=== PATIENT | male | born 1965 | race Caucasian/White ===

== ENCOUNTER 2020-02-22 14:23 | Inpatient (IN) | payer OTHER ==
[2020-02-22 15:33] VITALS: BMI 20.9
[2020-02-22] MEDS ORDERED: LACTATED RINGERS SOLUTION 1000 ML INFUS.BAG IV ONE ×2 (16:14)
[2020-02-22] MEDS ORDERED: HYDROmorphone HCl 2 MG/ML VIAL IVPUSH ONE (16:15)
[2020-02-22] MEDS ORDERED: PIPERACILLIN/TAZOB 4.5 GM 4.5 GM in DEXTROSE 5%-WATER 100 ML IVPB ONE (16:15)
[2020-02-22] MEDS ORDERED: VANCOMYCIN 1 GM in D5W (PRE-DOCKED) 1,000 MG/250 ML IVPB ONE (16:15)
[2020-02-22] MEDS ORDERED: NYSTATIN POWDER 100,000 UNITS/GM - 15 GM TOPICAL POWDER TP ONE (16:15)
[2020-02-22] MEDS ORDERED: ACETAMINOPHEN 1000 MG/100 ML VIAL (NON FORMULARY) IVPB ONE (16:20)
[2020-02-22] MEDS ORDERED: HYDROmorphone HCl 2 MG/ML VIAL ONE (16:49)
[2020-02-22 16:50] LABS: BASO % 0.6 % (0-2.0); EOS % 0.1 % (0-4.5); HEMATOCRIT 27.2 % (35.4-49); HEMOGLOBIN 8.7 GM/dL (11.7-16.9); LYMPH % 2.6 % (8-40); MCH 34.7 pg (25.7-33.7); MCHC 31.9 g/dl (32.0-35.9); MEAN CELL VOLUME 108.8 fl (80-96); MEAN PLT VOLUME 10.4 fl (7.5-11.1); MONO % 2.7 % (3.8-10.2); PLATELET COUNT 230 K/MM3 (134-434); RDW 17.7 % (11.9-15.9); WHITE BLOOD COUNT 12.3 K/mm3 (4.0-10.0)
[2020-02-22] MEDS ORDERED: ACETAMINOPHEN INJECTION 100 ML IVPB ONE (16:50)
[2020-02-22] MEDS ORDERED: PIPERACILLIN/TAZOB 4.5 GM 4.5 GM/100 ML BAG IVPB ONE (16:50)
[2020-02-22] MEDS ORDERED: VANCOMYCIN 1 GRAM (PRE-DOCKED) 1,000 MG/250 ML BAG IVPB ONE (16:50)
[2020-02-22] MEDS ORDERED: MAGNESIUM SULF 50% (8.12 MEQ/2 ML-1 GM VIAL) IVPB ONE (16:56)
[2020-02-22 17:06] LABS: BLOOD UREA NITROGEN 82.2 mg/dL (7-18); CALCIUM 9.7 mg/dL (8.5-10.1)
[2020-02-22 17:11] LABS: BILIRUBIN,TOTAL 0.5 mg/dL (0.2-1); TOT PROT 7.2 g/dl (6.4-8.2)
[2020-02-22 17:22] LABS: CREATININE 7.5 mg/dL (0.55-1.3); POTASSIUM 6.3 mmol/L (3.5-5.1)
[2020-02-22] MEDS ORDERED: LORazepam 2 MG TABLET PO ONE (17:33)
[2020-02-22 17:56] LABS: ANISOCYTOSIS 2+; MACROCYTOSIS 2+; PLATELET ESTIMATE ADEQUATE
[2020-02-22 18:37] LABS: INR 1.29 (0.83-1.09); PROTHROMBIN TIME (PATIENT) 15.5 SEC (9.7-13.0)
[2020-02-22 18:39] LABS: ACTIVATED PTT 37.4 SECONDS (25.2-36.5)
[2020-02-22] MEDS ORDERED: MAGNESIUM 1GM/D5W - 1 GM/100 ML IVPB IVPB ONE (18:43)
[2020-02-22] MEDS ORDERED: LORazepam 1 MG TABLET ONE (18:45)
[2020-02-22] MEDS ORDERED: ASPIRIN 81 MG CHEWABLE TABLETS PO ONE (20:40)
[2020-02-22 20:51] LABS: CALCIUM 8.9 mg/dL (8.5-10.1)
[2020-02-22 20:52] LABS: BLOOD UREA NITROGEN 80.7 mg/dL (7-18)
[2020-02-22 21:04] LABS: CREATININE 7.8 mg/dL (0.55-1.3); POTASSIUM 6.4 mmol/L (3.5-5.1)
[2020-02-22] MEDS ORDERED: ASPIRIN 81 MG CHEWABLE TABLETS ONE (21:52)
[2020-02-22 22:01] LABS: POTASSIUM 5.6 mmol/L (3.5-5.1)
[2020-02-22 22:02] LABS: CALCIUM 8.6 mg/dL (8.5-10.1)
[2020-02-22 22:03] LABS: BLOOD UREA NITROGEN 80.5 mg/dL (7-18)
[2020-02-22] MEDS ORDERED: INSULIN REGULAR HUMAN 100 UNITS/ML *VIAL IVPUSH ONE (22:18)
[2020-02-22 22:19] LABS: CREATININE 7.6 mg/dL (0.55-1.3)
[2020-02-22] MEDS ORDERED: DEXTROSE 50%-WATER - 25 GM/50 ML VIAL IVPUSH ONE (22:19)
[2020-02-22] MEDS ORDERED: CALCIUM GLUCONATE 10% - 1,000 MG/10 ML VIAL IVPUSH ONE (22:19)
[2020-02-22] MEDS ORDERED: CALCIUM GLUCONATE 10% - 1,000 MG/10 ML VIAL ONE (23:10)
[2020-02-22] MEDS ORDERED: DEXTROSE 50%-WATER 25 GM/50 ML DISP.SYRIN ONE (23:10)
[2020-02-22] MEDS ORDERED: HYDROmorphone HCL 2 MG TABLET PO ONE (23:19)
[2020-02-22] MEDS ORDERED: HYDROmorphone HCL 2 MG TABLET ONE (23:28)
[2020-02-22] MEDS ORDERED: SODIUM CHLORIDE 0.9% 1000 ML INFUS.BAG IV ONE (23:42)
[2020-02-23] MEDS ORDERED: SODIUM ZIRCONIUM CYCLOSILICATE (LOKELMA) 5 GM PACKET PO SCH ×2 (10:00→13:40)
[2020-02-23 13:02] LABS: BASO % 0.2 % (0-2.0); EOS % 0.3 % (0-4.5); HEMATOCRIT 28.2 % (35.4-49); LYMPH % 4.6 % (8-40); MCH 34.9 pg (25.7-33.7); MCHC 31.7 g/dl (32.0-35.9); MEAN PLT VOLUME 10.1 fl (7.5-11.1); MONO % 3.7 % (3.8-10.2); NEUT % 91.2 % (42.8-82.8); PLATELET COUNT 208 K/MM3 (134-434); RBC 2.57 M/mm3 (4.00-5.60); RDW 17.6 % (11.9-15.9); WHITE BLOOD COUNT 11.6 K/mm3 (4.0-10.0)
[2020-02-23 13:17] LABS: POTASSIUM 5.8 mmol/L (3.5-5.1)
[2020-02-23 13:20] LABS: ALBUMIN 1.8 g/dl (3.4-5.0); BLOOD UREA NITROGEN 89.4 mg/dL (7-18); CALCIUM 9.3 mg/dL (8.5-10.1)
[2020-02-23 13:25] LABS: BILIRUBIN,TOTAL 0.7 mg/dL (0.2-1); TOT PROT 6.5 g/dl (6.4-8.2)
[2020-02-23] MEDS ORDERED: SODIUM ZIRCONIUM CYCLOSILICATE (LOKELMA) 5 GM PACKET ONE (13:44)
[2020-02-23 14:26] LABS: ANISOCYTOSIS 2+; MACROCYTOSIS 2+
[2020-02-23] MEDS: HYDROmorphone HCL 2 MG TABLET PO PRN ×2 (14:27→22:30)
[2020-02-23] MEDS ORDERED: CEFAZOLIN 1 GM/D5W 1 GM/50 ML BAG ONE (15:07)
[2020-02-23] MEDS ORDERED: HEPARIN NA (PORCINE) 5,000 UNITS/ML 1ML VIAL ONE (15:07)
[2020-02-23] MEDS: HEPARIN NA (PORCINE) 5,000 UNITS/ML 1ML VIAL SQ SCH ×2 (15:57→22:37)
[2020-02-23] MEDS: CEFAZOLIN 1 GM in DEXTROSE 5%-WATER - 50 ML IVPB SCH (15:57)
[2020-02-23] MEDS: SEVELAMER CARBONATE 800 MG TAB (FP) PO SCH ×2 (17:34→17:54)
[2020-02-23] MEDS: VANCOMYCIN 250 MG/5 ML ORAL SOLUTION PO SCH (17:34)
[2020-02-23] MEDS ORDERED: METHADONE HCL 10 MG TABLET PO SCH (18:00)
[2020-02-23] MEDS: predniSONE 5 MG TABLET (UD) PO SCH (22:37)
[2020-02-23] MEDS: ATORVASTATIN CA 40 MG TABLET (FP) PO SCH (22:37)
[2020-02-23] MEDS ORDERED: SODIUM ZIRCONIUM CYCLOSILICATE (LOKELMA) 10 GM PACKET PO ONE (22:50)
[2020-02-24] MEDS: VANCOMYCIN 250 MG/5 ML ORAL SOLUTION PO SCH ×5 (00:23→23:31)
[2020-02-24] MEDS ORDERED: EPOETIN ALFA-EPBX 10,000 UNIT/ML VIAL SQ ONE (06:00)
[2020-02-24] MEDS ORDERED: metoPROLOL SUCCINATE 25 MG TAB.SR.24H (FP) PO ONE (06:00)
[2020-02-24] MEDS: HEPARIN NA (PORCINE) 5,000 UNITS/ML 1ML VIAL SQ SCH ×3 (06:55→22:03)
[2020-02-24] MEDS: fentaNYL 75mcg/hr PATCH.TD72 TD SCH (07:00)
[2020-02-24] MEDS: LEVOTHYROXINE NA 50 MCG TABLET (FP) PO SCH (07:19)
[2020-02-24] MEDS: FENTANYL PATCH WASTE MC PRN (07:19)
[2020-02-24] MEDS: HYDROmorphone HCL 2 MG TABLET PO PRN ×2 (08:17→16:38)
[2020-02-24] MEDS: SEVELAMER CARBONATE 800 MG TAB (FP) PO SCH ×3 (08:18→16:46)
[2020-02-24 08:21] LABS: BASO % 0.2 % (0-2.0); EOS % 0.1 % (0-4.5); HEMATOCRIT 24.8 % (35.4-49); HEMOGLOBIN 8.1 GM/dL (11.7-16.9); LYMPH % 3.7 % (8-40); MCH 35.6 pg (25.7-33.7); MCHC 32.7 g/dl (32.0-35.9); MEAN CELL VOLUME 108.8 fl (80-96); MEAN PLT VOLUME 10.3 fl (7.5-11.1); MONO % 3.8 % (3.8-10.2); NEUT % 92.2 % (42.8-82.8); PLATELET COUNT 195 K/MM3 (134-434); RBC 2.27 M/mm3 (4.00-5.60); WHITE BLOOD COUNT 10.4 K/mm3 (4.0-10.0)
[2020-02-24 08:50] LABS: POTASSIUM 5.7 mmol/L (3.5-5.1)
[2020-02-24 08:59] LABS: CALCIUM 8.8 mg/dL (8.5-10.1)
[2020-02-24 09:00] LABS: ALBUMIN 1.7 g/dl (3.4-5.0); BLOOD UREA NITROGEN 94.1 mg/dL (7-18); MAGNESIUM 2.1 mg/dL (1.8-2.4)
[2020-02-24 09:03] LABS: BILIRUBIN,TOTAL 0.4 mg/dL (0.2-1); TOT PROT 6.1 g/dl (6.4-8.2)
[2020-02-24] MEDS ORDERED: PT OWN MED DRAWER 7, Y5N ONE (10:08)
[2020-02-24 10:36] LABS: PHOSPHOROUS 9.3 mg/dL (2.5-4.9)
[2020-02-24] MEDS: metoPROLOL SUCCINATE 25 MG TAB.SR.24H (FP) PO SCH (11:29)
[2020-02-24] MEDS: ASPIRIN COATED 81 MG TABLET.EC PO SCH (11:29)
[2020-02-24] MEDS: SODIUM ZIRCONIUM CYCLOSILICATE (LOKELMA) 10 GM PACKET PO SCH (11:29)
[2020-02-24] MEDS: VITAMIN B COMP W-C 1 EA TABLET (NEPHRO-VITE) PO SCH (11:29)
[2020-02-24] MEDS: predniSONE 5 MG TABLET (UD) PO SCH ×2 (11:29→22:03)
[2020-02-24] MEDS: COLLAGENASE CLOSTRIDIUM HIST. 30 GRAMS TUBE TP SCH (11:30)
[2020-02-24 12:56] LABS: ANISOCYTOSIS 1+; MACROCYTOSIS 0; PLATELET ESTIMATE NORMAL
[2020-02-24] MEDS: LORazepam 0.5 MG TABLET PO PRN ×2 (13:12→23:31)
[2020-02-24] MEDS: METHADONE HCL 10 MG TABLET PO PRN (13:12)
[2020-02-24] MEDS ORDERED: DEXTROSE 5%-WATER - 50 ML IVPB ONE (14:21)
[2020-02-24] MEDS ORDERED: ceFAZolin SODIUM 1 GM VIAL ONE (14:21)
[2020-02-24] MEDS: CEFAZOLIN 1 GM in DEXTROSE 5%-WATER - 50 ML IVPB SCH (14:34)
[2020-02-24] MEDS ORDERED: HYDROmorphone HCl 2 MG/ML VIAL IVPB ONE (20:23)
[2020-02-24] MEDS: ATORVASTATIN CA 40 MG TABLET (FP) PO SCH (22:03)
[2020-02-25] MEDS: HYDROmorphone HCL 2 MG TABLET PO PRN ×3 (01:03→18:06)
[2020-02-25] MEDS: METHADONE HCL 10 MG TABLET PO PRN ×2 (01:03→13:26)
[2020-02-25] MEDS: LEVOTHYROXINE NA 50 MCG TABLET (FP) PO SCH (06:07)
[2020-02-25] MEDS: LORazepam 0.5 MG TABLET PO PRN ×3 (06:07→22:05)
[2020-02-25] MEDS: VANCOMYCIN 250 MG/5 ML ORAL SOLUTION PO SCH ×4 (06:07→23:05)
[2020-02-25] MEDS: HEPARIN NA (PORCINE) 5,000 UNITS/ML 1ML VIAL SQ SCH ×3 (06:07→22:06)
[2020-02-25] MEDS ORDERED: POVIDONE-IODINE 10% SOLN 118 ML BOTTLE TP ONE (07:31)
[2020-02-25] MEDS: SEVELAMER CARBONATE 800 MG TAB (FP) PO SCH ×3 (08:40→17:00)
[2020-02-25] MEDS ORDERED: PT OWN MED DRAWER 7, Y5N ONE (08:49)
[2020-02-25] MEDS: ASPIRIN COATED 81 MG TABLET.EC PO SCH (09:37)
[2020-02-25] MEDS: predniSONE 5 MG TABLET (UD) PO SCH ×2 (09:39→22:06)
[2020-02-25] MEDS: SODIUM ZIRCONIUM CYCLOSILICATE (LOKELMA) 10 GM PACKET PO SCH (09:39)
[2020-02-25] MEDS: SILVER SULFADIAZINE 1% TOP CREAM 50 GM JAR TP SCH (09:40)
[2020-02-25] MEDS: BACITRACIN 15 GM TUBE TOPICAL OINTMENT TP SCH (09:40)
[2020-02-25] MEDS: VITAMIN B COMP W-C 1 EA TABLET (NEPHRO-VITE) PO SCH (09:40)
[2020-02-25] MEDS: COLLAGENASE CLOSTRIDIUM HIST. 30 GRAMS TUBE TP SCH (09:41)
[2020-02-25] MEDS: metoPROLOL SUCCINATE 25 MG TAB.SR.24H (FP) PO SCH (09:41)
[2020-02-25] MEDS ORDERED: EPOETIN ALFA-EPBX 10,000 UNIT/ML VIAL IVPUSH ONE (11:30)
[2020-02-25] MEDS ORDERED: DEXTROSE 5%-WATER - 50 ML IVPB ONE (15:33)
[2020-02-25] MEDS ORDERED: ceFAZolin SODIUM 1 GM VIAL ONE (15:33)
[2020-02-25] MEDS: METHADONE HCL 10 MG TABLET PO SCH ×2 (15:34→22:05)
[2020-02-25] MEDS: CEFAZOLIN 1 GM in DEXTROSE 5%-WATER - 50 ML IVPB SCH (15:35)
[2020-02-25] MEDS ORDERED: diphenhydrAMINE HCL 25 MG CAPSULE (FP) PO ONE (22:03)
[2020-02-25] MEDS: ATORVASTATIN CA 40 MG TABLET (FP) PO SCH (22:06)
[2020-02-26] MEDS: HYDROmorphone HCL 2 MG TABLET PO PRN ×3 (04:40→22:31)
[2020-02-26] MEDS: HEPARIN NA (PORCINE) 5,000 UNITS/ML 1ML VIAL SQ SCH ×3 (06:49→22:32)
[2020-02-26] MEDS: METHADONE HCL 10 MG TABLET PO SCH ×3 (06:51→22:31)
[2020-02-26] MEDS: LEVOTHYROXINE NA 50 MCG TABLET (FP) PO SCH (06:52)
[2020-02-26] MEDS: VANCOMYCIN 250 MG/5 ML ORAL SOLUTION PO SCH ×3 (06:52→17:24)
[2020-02-26] MEDS ORDERED: PT OWN MED DRAWER 7, Y5N ONE ×2 (09:16→17:12)
[2020-02-26] MEDS: VITAMIN B COMP W-C 1 EA TABLET (NEPHRO-VITE) PO SCH (09:32)
[2020-02-26] MEDS: ASPIRIN COATED 81 MG TABLET.EC PO SCH (09:32)
[2020-02-26] MEDS: metoPROLOL SUCCINATE 25 MG TAB.SR.24H (FP) PO SCH (09:32)
[2020-02-26] MEDS: LORazepam 0.5 MG TABLET PO PRN (09:32)
[2020-02-26] MEDS: predniSONE 5 MG TABLET (UD) PO SCH ×2 (09:32→22:31)
[2020-02-26] MEDS: SEVELAMER CARBONATE 800 MG TAB (FP) PO SCH ×3 (09:32→17:24)
[2020-02-26] MEDS: SILVER SULFADIAZINE 1% TOP CREAM 50 GM JAR TP SCH (09:33)
[2020-02-26] MEDS: SODIUM ZIRCONIUM CYCLOSILICATE (LOKELMA) 10 GM PACKET PO SCH (09:33)
[2020-02-26] MEDS: BACITRACIN 15 GM TUBE TOPICAL OINTMENT TP SCH (09:33)
[2020-02-26] MEDS: COLLAGENASE CLOSTRIDIUM HIST. 30 GRAMS TUBE TP SCH (09:34)
[2020-02-26] MEDS ORDERED: SODIUM CHLORIDE 250 ML IV PRN (14:50)
[2020-02-26] MEDS ORDERED: ceFAZolin SODIUM 1 GM VIAL ONE ×2 (15:35→16:04)
[2020-02-26] MEDS ORDERED: DEXTROSE 5%-WATER - 50 ML IVPB ONE ×2 (15:36→16:04)
[2020-02-26] MEDS: CEFAZOLIN 1 GM in DEXTROSE 5%-WATER - 50 ML IVPB SCH (16:06)
[2020-02-26] MEDS: ATORVASTATIN CA 40 MG TABLET (FP) PO SCH (22:31)
[2020-02-27] MEDS: VANCOMYCIN 250 MG/5 ML ORAL SOLUTION PO SCH ×4 (00:50→17:59)
[2020-02-27] MEDS: LEVOTHYROXINE NA 50 MCG TABLET (FP) PO SCH (06:14)
[2020-02-27] MEDS: METHADONE HCL 10 MG TABLET PO SCH ×3 (06:14→22:14)
[2020-02-27] MEDS: HEPARIN NA (PORCINE) 5,000 UNITS/ML 1ML VIAL SQ SCH ×3 (06:14→22:15)
[2020-02-27] MEDS: fentaNYL 75mcg/hr PATCH.TD72 TD SCH (06:15)
[2020-02-27] MEDS: HYDROmorphone HCL 2 MG TABLET PO PRN ×3 (06:15→19:00)
[2020-02-27] MEDS: FENTANYL PATCH WASTE MC PRN (06:22)
[2020-02-27] MEDS: SEVELAMER CARBONATE 800 MG TAB (FP) PO SCH ×3 (09:04→17:59)
[2020-02-27] MEDS: LORazepam 0.5 MG TABLET PO PRN ×3 (09:04→22:15)
[2020-02-27] MEDS: ASPIRIN COATED 81 MG TABLET.EC PO SCH (09:04)
[2020-02-27] MEDS: BACITRACIN 15 GM TUBE TOPICAL OINTMENT TP SCH (09:04)
[2020-02-27] MEDS: SILVER SULFADIAZINE 1% TOP CREAM 50 GM JAR TP SCH (09:05)
[2020-02-27] MEDS: predniSONE 5 MG TABLET (UD) PO SCH ×2 (09:05→22:15)
[2020-02-27] MEDS: metoPROLOL SUCCINATE 25 MG TAB.SR.24H (FP) PO SCH (09:05)
[2020-02-27] MEDS: COLLAGENASE CLOSTRIDIUM HIST. 30 GRAMS TUBE TP SCH (09:06)
[2020-02-27] MEDS: VITAMIN B COMP W-C 1 EA TABLET (NEPHRO-VITE) PO SCH (09:06)
[2020-02-27] MEDS ORDERED: PT OWN MED DRAWER 7, Y5N ONE (09:37)
[2020-02-27] MEDS: ONDANSETRON 4 MG/2 ML VIAL IVPUSH PRN (10:26)
[2020-02-27 12:22] LABS: BASO % 0.1 % (0-2.0); EOS % 0.1 % (0-4.5); HEMOGLOBIN 7.3 GM/dL (11.7-16.9); LYMPH % 4.1 % (8-40); MCH 34.7 pg (25.7-33.7); MCHC 31.8 g/dl (32.0-35.9); MEAN CELL VOLUME 109.3 fl (80-96); MEAN PLT VOLUME 10.3 fl (7.5-11.1); NEUT % 91.7 % (42.8-82.8); PLATELET COUNT 178 K/MM3 (134-434); RDW 16.7 % (11.9-15.9); WHITE BLOOD COUNT 12.3 K/mm3 (4.0-10.0)
[2020-02-27] MEDS ORDERED: DEXTROSE 5%-WATER - 50 ML IVPB ONE (12:40)
[2020-02-27] MEDS ORDERED: ceFAZolin SODIUM 1 GM VIAL ONE (12:40)
[2020-02-27 12:48] LABS: BLOOD UREA NITROGEN 83.1 mg/dL (7-18); CALCIUM 8.7 mg/dL (8.5-10.1)
[2020-02-27 12:59] LABS: ANISOCYTOSIS 2+; MACROCYTOSIS 2+; OVALOCYTE 1+; PLATELET ESTIMATE NORMAL
[2020-02-27 13:00] LABS: CREATININE 7.8 mg/dL (0.55-1.3)
[2020-02-27] MEDS: SODIUM ZIRCONIUM CYCLOSILICATE (LOKELMA) 10 GM PACKET PO SCH (14:21)
[2020-02-27] MEDS: CEFAZOLIN 1 GM in DEXTROSE 5%-WATER - 50 ML IVPB SCH (14:22)
[2020-02-27] MEDS ORDERED: FENTANYL PATCH WASTE MC PRN (19:28)
[2020-02-27] MEDS ORDERED: ATORVASTATIN CA 40 MG TABLET (FP) PO SCH (22:00)
[2020-02-28] MEDS: VANCOMYCIN 250 MG/5 ML ORAL SOLUTION PO SCH ×4 (00:49→17:05)
[2020-02-28] MEDS: HEPARIN NA (PORCINE) 5,000 UNITS/ML 1ML VIAL SQ SCH ×2 (06:22→13:03)
[2020-02-28] MEDS: METHADONE HCL 10 MG TABLET PO SCH ×2 (06:23→14:00)
[2020-02-28] MEDS ORDERED: LEVOTHYROXINE NA 50 MCG TABLET (FP) PO SCH (07:00)
[2020-02-28] MEDS: SEVELAMER CARBONATE 800 MG TAB (FP) PO SCH ×4 (07:46→17:06)
[2020-02-28] MEDS: HYDROmorphone HCL 2 MG TABLET PO PRN ×2 (07:46→15:45)
[2020-02-28] MEDS: ONDANSETRON 4 MG/2 ML VIAL IVPUSH PRN (07:47)
[2020-02-28] MEDS ORDERED: ASPIRIN COATED 81 MG TABLET.EC PO SCH (10:00)
[2020-02-28] MEDS ORDERED: metoPROLOL SUCCINATE 25 MG TAB.SR.24H (FP) PO SCH (10:00)
[2020-02-28] MEDS ORDERED: SILVER SULFADIAZINE 1% TOP CREAM 50 GM JAR TP SCH (10:00)
[2020-02-28] MEDS ORDERED: SODIUM ZIRCONIUM CYCLOSILICATE (LOKELMA) 10 GM PACKET PO SCH (10:00)
[2020-02-28] MEDS ORDERED: COLLAGENASE CLOSTRIDIUM HIST. 30 GRAMS TUBE TP SCH (10:00)
[2020-02-28] MEDS ORDERED: BACITRACIN 15 GM TUBE TOPICAL OINTMENT TP SCH (10:00)
[2020-02-28] MEDS: predniSONE 5 MG TABLET (UD) PO SCH (11:53)
[2020-02-28] MEDS: VITAMIN B COMP W-C 1 EA TABLET (NEPHRO-VITE) PO SCH ×2 (11:54→12:22)
[2020-02-28] MEDS ORDERED: SODIUM CHLORIDE 250 ML IV PRN (12:37)
[2020-02-28] MEDS ORDERED: EPOETIN ALFA-EPBX 3,000 UNIT/ML VIAL SQ ONE (12:37)
[2020-02-28] MEDS ORDERED: LORazepam 0.5 MG TABLET PO PRN (13:36)
[2020-02-28] MEDS ORDERED: CEFAZOLIN 1 GM in DEXTROSE 5%-WATER - 50 ML IVPB SCH (15:00)
[2020-02-28 15:44] VITALS: BP 89/45; PULSE 75; TEMP 97.7
[2020-02-28] MEDS ORDERED: METHADONE HCL 5 MG TABLET PO SCH (15:58)
[2020-02-28] MEDS ORDERED: DEXTROSE 5%-WATER - 50 ML IVPB ONE (17:03)
[2020-02-28] MEDS ORDERED: ceFAZolin SODIUM 1 GM VIAL ONE (17:03)
[2020-03-01] MEDS ORDERED: fentaNYL 75mcg/hr PATCH.TD72 TD SCH (07:00)
== END 2020-02-28 21:46 | disposition expired | DRG 137 ==
LOC: JER 14:23 → JERBED 20:40 → J4S 02-23 19:13 → J8W 02-27 18:38
PROVIDERS: ADMIT Internal Medicine; ATTEND Internal Medicine
PROC: HZ91ZZZ Pharmacotherapy for Substance Abuse Treatment, Methadone Maintenance (ICD-10-PCS; 2020-02-22)
PROC: 5A1D70Z Performance of Urinary Filtration, Intermittent, Less than 6 Hours Per Day (ICD-10-PCS; 2020-02-25)
PROC: 5A1D70Z Performance of Urinary Filtration, Intermittent, Less than 6 Hours Per Day (ICD-10-PCS; 2020-02-27)
PROC: 5A12012 Performance of Cardiac Output, Single, Manual (ICD-10-PCS; principal; 2020-02-28)
PROC: 0CHY7BZ Insertion of Airway into Mouth and Throat, Via Natural or Artificial Opening (ICD-10-PCS; 2020-02-28)
PROC: 5A1935Z Respiratory Ventilation, Less than 24 Consecutive Hours (ICD-10-PCS; 2020-02-28)
DX: U07.1 COVID-19 (principal); J12.82 Pneumonia due to coronavirus disease 2019; I12.0 Hypertensive chronic kidney disease with stage 5 chronic kidney disease or end stage renal disease; E03.9 Hypothyroidism, unspecified; L03.311 Cellulitis of abdominal wall; R77.8 Other specified abnormalities of plasma proteins; D63.1 Anemia in chronic kidney disease; E78.00 Pure hypercholesterolemia, unspecified; G89.29 Other chronic pain; I73.89 Other specified peripheral vascular diseases; R64 Cachexia; Z68.21 Body mass index [BMI] 21.0-21.9, adult; E87.5 Hyperkalemia; L97.513 Non-pressure chronic ulcer of other part of right foot with necrosis of muscle; K94.09 Other complications of colostomy; F11.20 Opioid dependence, uncomplicated; N18.6 End stage renal disease; R19.7 Diarrhea, unspecified; I24.8 Other forms of acute ischemic heart disease; E83.39 Other disorders of phosphorus metabolism; I46.9 Cardiac arrest, cause unspecified; J96.00 Acute respiratory failure, unspecified whether with hypoxia or hypercapnia; R62.7 Adult failure to thrive; Y83.8 Other surgical procedures as the cause of abnormal reaction of the patient, or of later complication, without mention of misadventure at the time of the procedure
CPT/HCPCS: 36415; 71045-TC-FY; 74018-TC-FY; 80048; 80053; 82962; 83605; 83735; 83970; 84100; 84484; 85025; 85610; 85730; 86803; 87040; 87324; 87340; 87449; 93005; 93010; 97161-GP; 99285-25; C9803; J0131; J1644; Q5106; U0003